=== PATIENT | male | born 1990 | race African-American/Black ===

== ENCOUNTER 2019-02-28 02:34 | Inpatient (IN) | payer OTHER, SELFPAY ==
[2019-02-28] MEDS ORDERED: Adacel (T-DAP) 0.5 ML SYRINGE ONE (02:38)
[2019-02-28] MEDS ORDERED: Fentanyl 100 MCG/2 ML VIAL ONE ×6 (02:41→09:19)
[2019-02-28] MEDS ORDERED: Sodium Chloride 0.9% 0 ML ONE (02:56)
[2019-02-28 03:14] LABS: Hemoglobin 15.2 g/dL (14.0-18.0); Mean Corpuscular HGB CONC 35.1 g/dL (32.0-36.0); Mean Corpuscular Hemoglobin 31.5 pg (27.0-31.0); Mean Corpuscular Volume 89.6 fL (78.0-98.0); Mean Platelet Volume 8.6 fL (7.4-10.4); Platelet Count 223 thou/uL (130-400); RBC Distribution Width 12.2 % (11.5-14.5); Red Blood Cell (RBC) Count 4.81 mill/uL (4.70-6.10); White Blood Cell (WBC) Count 12.6 thou/uL (4.8-10.8)
[2019-02-28] MEDS ORDERED: Ondansetron PF 4 MG/2 ML Vial ONE ×2 (03:16→16:20)
[2019-02-28] MEDS ORDERED: Morphine 4 MG/ML VIAL ONE (03:16)
[2019-02-28 03:18] LABS: INR-International Normal Ratio 1.1
[2019-02-28 03:19] LABS: ALT (SGPT) 32 U/L (8-55); AST (SGOT) 33 U/L (5-34); Albumin 4.9 g/dL (3.5-5.0); Alkaline Phosphatase 84 U/L (40-150); Anion Gap 17 mmol/L (10-20); BUN (Urea Nitrogen) 13 mg/dL (8.9-20.6); Bilirubin, Total 0.9 mg/dL (0.2-1.2); Calc. Creatinine Clearance 0 mL/min (70-130); Calcium 10.2 mg/dL (7.8-10.44); Carbon Dioxide 23 mmol/L (22-29); Chloride 105 mmol/L (98-107); Estimated GFR-MDRD 82; Globulin 3.6 g/dL (2.4-3.5); Glucose 87 mg/dL (70-105); PTT 27.7 SEC (22.9-36.1); Potassium 3.4 mmol/L (3.5-5.1); Protein, Total 8.5 g/dL (6.0-8.3); Sodium 142 mmol/L (136-145)
[2019-02-28 03:32] LABS: #Basophils 0.2 thou/uL (0.0-0.2); #Eosinphils 0.3 thou/uL (0.0-0.7); #Monocytes 0.8 thou/uL (0.11-0.59); #Neutrophils 5.3 thou/uL (1.40-6.50); %Basophils 1.6 % (0.0-1.0); %Eosinophils 2.1 % (0.0-10.0); %Lymphocytes 47.4 % (21.0-51.0); %Monocytes 6.5 % (0.0-10.0); %Neutrophils 42.3 % (42.0-75.0); Platelet Morphology Comment Appears Adequate; RBC Morphology Normal
[2019-02-28] MEDS ORDERED: Sodium Chloride 0.9% 60 ML ONE (06:17)
[2019-02-28] MEDS ORDERED: traMADol HCl 50 MG TAB PO PRN (06:29)
[2019-02-28] MEDS ORDERED: Acetaminophen 325 MG TAB PO PRN (06:29)
[2019-02-28] MEDS ORDERED: Morphine 4 MG/ML VIAL SLOW IVP PRN (06:29)
[2019-02-28] MEDS ORDERED: TETANUS AND DIPHTHERIA TOX/PF 0.5 ML DISP.SYRIN IM SCH (06:30)
[2019-02-28] MEDS ORDERED: Meperidine HCl/PF 25 MG/ML VIAL IM PRN (06:33)
[2019-02-28] MEDS ORDERED: Midazolam HCl 2 mg/2 ml Vial ONE (06:47)
[2019-02-28] MEDS ORDERED: Gentamicin 80 MG/2 ML VIAL ONE (07:09)
[2019-02-28] MEDS ORDERED: Thrombin 5000 UNITS/5 ML VIAL ONE (07:31)
--- NOTE | 2019-02-28 07:34 | RAD ---
EXAM: Single view of the chest HISTORY: Cough COMPARISON: None FINDINGS: Single view of the chest shows a normal sized cardiomediastinal silhouette. There is no diane dence of consolidation, mass, or pleural effusion. The bones are unremarkable. IMPRESSION: No evidence of acute cardiopulmonary disease
[2019-02-28] MEDS ORDERED: Sodium Chloride 0.9% 30 ML ONE (07:39)
--- NOTE | 2019-02-28 07:45 | RAD ---
EXAM: 3 views of the right hand COMPARISON: None HISTORY: Right hand pain after getting hand caught in a newspaper press FINDINGS: 3 views of the right hand shows no evidence of acute fracture or dislocation. No degenerati ve changes are seen. Moderate thumb soft tissue swelling is present. There is a laceration of the thumb without underlying radiopaque foreign body. IMPRESSION: No evidence of acute osseous abnormality.
[2019-02-28] MEDS ORDERED: HYDROmorphone 2 MG/ML VIAL SLOW IVP PRN (08:02)
[2019-02-28] MEDS ORDERED: Ondansetron HCl/PF 4 MG/2 ML Vial IVP PRN (08:02)
[2019-02-28] MEDS ORDERED: Promethazine HCl 25 MG/ML VIAL IM PRN (08:02)
[2019-02-28] MEDS ORDERED: Promethazine HCl 25 MG/ML VIAL SLOW IVP PRN (08:02)
[2019-02-28] MEDS ORDERED: Labetalol HCl 100 MG/20 ML VIAL ONE (08:26)
[2019-02-28] MEDS ORDERED: hydrALAZINE 20 MG/ML VIAL ONE (08:49)
[2019-02-28] MEDS ORDERED: Pen G 2.5 MILL.UNITS/50 ML BAG IVPB SCH (09:00)
[2019-02-28] MEDS: Aspirin 81 mg Enteric Coated Tablet PO SCH ×2 (09:55→21:01)
[2019-02-28 10:50] VITALS: BMI 29.9
[2019-02-28] MEDS: Penicillin G Potassium 2.5 MILL.UNITS in Sodium Chloride 0.9% 50 ML IVPB SCH ×4 (10:59→21:01)
[2019-02-28] MEDS: Sodium Chloride 0.9% 1,000 ML IV SCH ×2 (10:59→15:12)
[2019-02-28] MEDS ORDERED: Vancomycin HCl 1 GM in Premix Bag 1 BAG IVPB SCH (11:30)
[2019-02-28] MEDS ORDERED: ALL ABX IVPB PRN (12:00)
[2019-02-28] MEDS: HYDROcodone/Acetaminophen 5/325 mg Tablet PO PRN (12:10)
[2019-02-28] MEDS: Gentamicin Sulfate 80 MG in Premix Bag 1 BAG IVPB SCH ×2 (14:40→22:47)
[2019-02-28] MEDS ORDERED: Gentamicin 80 MG/100 ML BAG IVPB SCH (15:00)
[2019-02-28] MEDS ORDERED: Glycopyrrolate 0.2 MG/ML 5 ML SYRINGE ONE (16:20)
[2019-02-28] MEDS ORDERED: Rocuronium Bromide 10 MG/ML (10ML VIAL) ONE (16:20)
[2019-02-28] MEDS ORDERED: PROPOFOL 200 MG/20 ML VIAL ONE (16:20)
[2019-02-28] MEDS ORDERED: Succinylcholine Chloride 20 MG/ML 10 ml SYRINGE FS ONE (16:20)
[2019-02-28] MEDS ORDERED: Dexamethasone 20 MG/5 ML VIAL ONE (16:20)
[2019-02-28] MEDS ORDERED: Lidocaine 1% PF 5 ML VIAL ONE (16:20)
[2019-02-28] MEDS: Gabapentin 300 MG CAP PO SCH (21:00)
[2019-02-28] MEDS: Ketorolac Tromethamine 30 MG/ML VIAL IVP PRN (23:53)
[2019-03-01] MEDS: Penicillin G Potassium 2.5 MILL.UNITS in Sodium Chloride 0.9% 50 ML IVPB SCH ×6 (01:32→21:16)
[2019-03-01] MEDS: Sodium Chloride 0.9% 1,000 ML IV SCH ×3 (02:37→21:26)
[2019-03-01] MEDS: Gabapentin 300 MG CAP PO SCH ×3 (05:27→21:16)
[2019-03-01] MEDS: Gentamicin Sulfate 80 MG in Premix Bag 1 BAG IVPB SCH (07:38)
[2019-03-01] MEDS: HYDROcodone/Acetaminophen 5/325 mg Tablet PO PRN (07:43)
[2019-03-01] MEDS: Aspirin 81 mg Enteric Coated Tablet PO SCH ×2 (07:46→21:16)
[2019-03-01 08:16] LABS: #Basophils 0.1 thou/uL (0.0-0.2); #Eosinphils 0.1 thou/uL (0.0-0.7); #Monocytes 0.8 thou/uL (0.11-0.59); #Neutrophils 5.3 thou/uL (1.40-6.50); %Basophils 0.8 % (0.0-1.0); %Eosinophils 1.8 % (0.0-10.0); %Lymphocytes 23.9 % (21.0-51.0); %Monocytes 9.5 % (0.0-10.0); %Neutrophils 64.1 % (42.0-75.0); Hemoglobin 13.3 g/dL (14.0-18.0); Mean Corpuscular HGB CONC 34.8 g/dL (32.0-36.0); Mean Corpuscular Hemoglobin 30.8 pg (27.0-31.0); Mean Corpuscular Volume 88.5 fL (78.0-98.0); Mean Platelet Volume 8.7 fL (7.4-10.4); Platelet Count 180 thou/uL (130-400); Red Blood Cell (RBC) Count 4.33 mill/uL (4.70-6.10); White Blood Cell (WBC) Count 8.3 thou/uL (4.8-10.8)
[2019-03-01 10:28] LABS: Vancomycin, Trough 25.2 ug/mL
[2019-03-01] MEDS ORDERED: PHENYLEPHRINE-NS 100 MCG/ML 10 ML SYRINGE ONE (10:40)
[2019-03-01] MEDS ORDERED: Lidocaine 2% PF 5 ML VIAL ONE (10:40)
[2019-03-01] MEDS ORDERED: Dexamethasone 20 MG/5 ML VIAL ONE (10:40)
[2019-03-01] MEDS ORDERED: Ondansetron PF 4 MG/2 ML Vial ONE (10:40)
[2019-03-01] MEDS ORDERED: PROPOFOL 200 MG/20 ML VIAL ONE (10:40)
[2019-03-01] MEDS: Ketorolac Tromethamine 30 MG/ML VIAL IVP PRN (11:56)
[2019-03-01] MEDS: Ondansetron PF 4 MG/2 ML Vial IVP PRN (11:56)
[2019-03-01] MEDS ORDERED: Bupivacaine PF 0.5% 30 ML VIAL ONE (16:58)
[2019-03-01] MEDS ORDERED: Thrombin 5000 UNITS/5 ML VIAL ONE ×2 (16:58→19:36)
[2019-03-01] MEDS ORDERED: Bacitracin Zinc Ointment 30 gm TUBE ONE (16:58)
[2019-03-01] MEDS ORDERED: Sodium Chloride 0.9% 50 ML ONE (16:59)
[2019-03-01] MEDS ORDERED: Fentanyl 100 MCG/2 ML VIAL ONE (18:24)
[2019-03-01] MEDS: Vancomycin HCl 1.5 GM in Sodium Chloride 0.9% 250 ML 300 ML IVPB SCH (18:25)
[2019-03-01] MEDS ORDERED: Promethazine HCl 25 MG/ML VIAL SLOW IVP PRN (21:02)
[2019-03-01] MEDS ORDERED: Promethazine HCl 25 MG/ML VIAL IM PRN (21:02)
[2019-03-01] MEDS ORDERED: Ondansetron HCl/PF 4 MG/2 ML Vial IVP PRN (21:02)
[2019-03-02] MEDS: Vancomycin HCl 1.5 GM in Sodium Chloride 0.9% 250 ML 300 ML IVPB SCH ×3 (01:01→18:28)
[2019-03-02] MEDS: Penicillin G Potassium 2.5 MILL.UNITS in Sodium Chloride 0.9% 50 ML IVPB SCH ×6 (01:02→21:29)
--- NOTE | 2019-03-02 02:58 | OP ---
DATE OF PROCEDURE: 03/01/2019 PREOPERATIVE DIAGNOSIS: Right hand and wrist and finger open wounds secondary to avulsion of the wrist and skin in a contaminated (printer press with tar ink and dirt) environment. PROCEDURE PERFORMED: 1. Debridement of right thumb. 2. Debridement of right ring finger. 3. Debridement of right small finger. 4. Debridement of right palm and wrist. 5. Application of short-arm splint. DEBRIDEMENT TECHNIQUES: 1. Excision. 2. Use of tenotomy scissors, Austin blade, curette, Adson's and Pulsavac irrigation, 5 L total. 3. The depth was down to and including muscle and fascia, but no violation of bone or joint (intermediate depth, 00025). SPLINT APPLIED: Yes. TOURNIQUET TIME: None. ESTIMATED BLOOD LOSS: 50 mL. INDICATIONS FOR PROCEDURE: The patient returns for staged wound management now approximately 40 hours after his injury and first debridement. He had his wound packed, with the type of avulsion, use of a VAC dressing. He also has a thrombin-soaked Gelfoam placed. DESCRIPTION OF PROCEDURE: After successful general endotracheal anesthesia, the patient's limb was prepped and draped. There was no tourniquet used. We unrolled the avulsed skin, which was the entire palmar skin from 2 cm proximal to the volar wrist flexion crease all the way to the midportion of the proximal phalanx of the index, long, and ring fingers. The thumb also had avulsion on his dorsal and ulnar sides to the level snf through the MP and IP joints. We then inspected all areas, found the small minimal specks x2 or 3 total tar/printing press grease and oil which we removed easily. We debrided a small amount of denuded fat over the ulnar palm, and otherwise we saw a small amount hematoma clot and we used a curette to remove the thrombin-soaked Gelfoam. We now had about 50 mL of blood loss. The only area that did not bleed was a 1 x 2 cm area of skin over the thenar eminence, which was turned somewhat gomez and may need to be debrided at the final closure away. The patient then had a 5 L normal saline used in all interspaces, web spaces, and all wounds. We have done equally. After this, we had more copious bleeding and had to apply moist Raytec as well as thrombin-soaked Gelfoam to control the bleeding from these debrided surfaces. Then, we packed on top of the thrombin-soaked Gelfoam and any area that was still exposed, normal saline soaked gauze x6, 4x4s, dry gauze placed over all this, we used three Kerlix to do a bulky hand dressing between the web spaces, and then we placed an ABD over the 2 bleeding areas, finally Kerlix was applied and we placed the digits in 25 degrees of PIP joint flexion, full extension of the DIP and MP at 60 degrees with a splint dorsal block technique. The patient left the operating room without evidence of anesthetic or operative complication. We encouraged to move his fingers without any thought of problematic findings. Job ID: [id number]
[2019-03-02 05:06] LABS: Anion Gap 12 mmol/L (10-20); BUN (Urea Nitrogen) 21 mg/dL (8.9-20.6); Calc. Creatinine Clearance 54 mL/min (70-130); Calcium 8.9 mg/dL (7.8-10.44); Carbon Dioxide 22 mmol/L (22-29); Chloride 107 mmol/L (98-107); Estimated GFR-MDRD 29; Glucose 153 mg/dL (70-105); Potassium 5.1 mmol/L (3.5-5.1); Sodium 136 mmol/L (136-145)
[2019-03-02 05:14] LABS: Hemoglobin 12.1 g/dL (14.0-18.0); Hypochromia SLIGHT = 6-15 cells (100X) (0-5/hpf); Lymphocytes 5 % (21-51); MDiff Complete? YES; Mean Corpuscular Hemoglobin 31.1 pg (27.0-31.0); Mean Corpuscular Volume 88.9 fL (78.0-98.0); Mean Platelet Volume 8.5 fL (7.4-10.4); Monocytes 6 % (0-10); Neutrophil 89 % (42-75); Platelet Count 183 thou/uL (130-400); Platelet Morphology Comment Appears Adequate; RBC Distribution Width 11.8 % (11.5-14.5); Red Blood Cell (RBC) Count 3.88 mill/uL (4.70-6.10); White Blood Cell (WBC) Count 13.6 thou/uL (4.8-10.8)
[2019-03-02] MEDS: Gabapentin 300 MG CAP PO SCH ×3 (05:58→21:29)
[2019-03-02] MEDS: Ondansetron PF 4 MG/2 ML Vial IVP PRN (07:43)
[2019-03-02] MEDS: Aspirin 81 mg Enteric Coated Tablet PO SCH ×2 (07:56→20:51)
[2019-03-02] MEDS: Sodium Chloride 0.9% 1,000 ML IV SCH ×2 (08:17→17:39)
[2019-03-02] MEDS: Milk Of Magnesia 30 ML UDCUP PO PRN ×2 (09:43→12:57)
[2019-03-02 17:59] LABS: Vancomycin, Trough 55.7 ug/mL
[2019-03-02] MEDS ORDERED: Calcium Carbonate 500 MG ChewTAB PO PRN (20:43)
[2019-03-02] MEDS ORDERED: Famotidine 20 MG TAB PO PRN (20:44)
[2019-03-02 21:33] LABS: Band 4 % (5-11); Hemoglobin 11.4 g/dL (14.0-18.0); Lymphocytes 18 % (21-51); MDiff Complete? YES; Mean Corpuscular HGB CONC 35.3 g/dL (32.0-36.0); Mean Corpuscular Hemoglobin 31.6 pg (27.0-31.0); Mean Corpuscular Volume 89.5 fL (78.0-98.0); Mean Platelet Volume 8.3 fL (7.4-10.4); Monocytes 8 % (0-10); Neutrophil 70 % (42-75); Platelet Count 160 thou/uL (130-400); Platelet Morphology Comment Appears Adequate; RBC Distribution Width 11.9 % (11.5-14.5); Red Blood Cell (RBC) Count 3.61 mill/uL (4.70-6.10); White Blood Cell (WBC) Count 14.9 thou/uL (4.8-10.8)
[2019-03-02] MEDS ORDERED: Promethazine HCl 25 MG/ML VIAL IM PRN (21:59)
[2019-03-02] MEDS ORDERED: hydrOXYzine 25 MG/ML VIAL IM PRN (22:00)
[2019-03-02] MEDS ORDERED: Morphine 4 MG/ML VIAL SLOW IVP PRN (22:01)
[2019-03-02 22:45] LABS: ALT (SGPT) 35 U/L (8-55); AST (SGOT) 49 U/L (5-34); Albumin 3.6 g/dL (3.5-5.0); Alkaline Phosphatase 64 U/L (40-150); Bilirubin, Direct 0.2 mg/dL (0.1-0.3); Bilirubin, Total 0.6 mg/dL (0.2-1.2); Protein, Total 6.3 g/dL (6.0-8.3)
[2019-03-03] MEDS: Penicillin G Potassium 2.5 MILL.UNITS in Sodium Chloride 0.9% 50 ML IVPB SCH ×6 (02:04→21:18)
[2019-03-03 05:15] LABS: #Eosinphils 0.1 thou/uL (0.0-0.7); #Lymphocytes 2.1 thou/uL (1.20-3.40); #Monocytes 1.1 thou/uL (0.11-0.59); #Neutrophils 7.1 thou/uL (1.40-6.50); %Basophils 0.3 % (0.0-1.0); %Eosinophils 0.9 % (0.0-10.0); %Lymphocytes 19.9 % (21.0-51.0); %Monocytes 10.4 % (0.0-10.0); %Neutrophils 68.5 % (42.0-75.0); Hemoglobin 10.3 g/dL (14.0-18.0); Mean Corpuscular HGB CONC 34.6 g/dL (32.0-36.0); Mean Corpuscular Hemoglobin 30.8 pg (27.0-31.0); Mean Corpuscular Volume 88.9 fL (78.0-98.0); Mean Platelet Volume 8.5 fL (7.4-10.4); Platelet Count 161 thou/uL (130-400); RBC Distribution Width 11.9 % (11.5-14.5); Red Blood Cell (RBC) Count 3.34 mill/uL (4.70-6.10); White Blood Cell (WBC) Count 10.4 thou/uL (4.8-10.8)
[2019-03-03] MEDS: Gabapentin 300 MG CAP PO SCH ×3 (06:22→21:18)
[2019-03-03] MEDS: Sodium Chloride 0.9% 1,000 ML IV SCH ×2 (06:36→14:52)
[2019-03-03] MEDS: Aspirin 81 mg Enteric Coated Tablet PO SCH ×2 (08:43→21:19)
[2019-03-03] MEDS: HYDROcodone/Acetaminophen 5/325 mg Tablet PO PRN (12:20)
[2019-03-03 17:32] LABS: Vancomycin, Random 29.7 ug/mL (See Comment)
[2019-03-03] MEDS ORDERED: Vancomycin HCl 1.5 GM in Sodium Chloride 0.9% 250 ML 300 ML IVPB SCH (18:00)
[2019-03-04] MEDS: Ketorolac Tromethamine 30 MG/ML VIAL IVP PRN ×2 (00:15→14:30)
[2019-03-04] MEDS: Penicillin G Potassium 2.5 MILL.UNITS in Sodium Chloride 0.9% 50 ML IVPB SCH ×3 (01:56→11:36)
[2019-03-04] MEDS: Sodium Chloride 0.9% 1,000 ML IV SCH ×3 (02:41→21:02)
[2019-03-04] MEDS ORDERED: Gentamicin Sulfate 100 MG in Premix Bag 1 BAG IVPB SCH (03:00)
[2019-03-04] MEDS: Gabapentin 300 MG CAP PO SCH ×3 (06:21→21:03)
[2019-03-04] MEDS ORDERED: Bacitracin Zinc Ointment 30 gm TUBE ONE (07:57)
[2019-03-04] MEDS ORDERED: Bupivacaine PF 0.5% 30 ML VIAL ONE (07:57)
[2019-03-04] MEDS ORDERED: Thrombin 5000 UNITS/5 ML VIAL ONE (07:57)
[2019-03-04] MEDS ORDERED: Sodium Chloride 0.9% 10 ML ONE (07:58)
[2019-03-04] MEDS: Aspirin 81 mg Enteric Coated Tablet PO SCH ×2 (08:55→21:02)
[2019-03-04] MEDS ORDERED: Midazolam HCl 2 mg/2 ml Vial ONE (10:06)
[2019-03-04] MEDS ORDERED: Fentanyl 100 MCG/2 ML VIAL ONE ×2 (10:07→10:29)
[2019-03-04] MEDS ORDERED: Bupivacaine 0.25% HCL 30 ML VIAL ONE (12:33)
[2019-03-04] MEDS ORDERED: PROPOFOL 200 MG/20 ML VIAL ONE (12:58)
[2019-03-04] MEDS ORDERED: Lidocaine 1% PF 5 ML VIAL ONE (12:58)
[2019-03-04] MEDS ORDERED: Meperidine HCl/PF 25 MG/ML VIAL ONE (13:10)
[2019-03-04] MEDS ORDERED: Morphine 4 MG/ML VIAL SLOW IVP PRN (14:09)
[2019-03-04] MEDS ORDERED: Meperidine HCl/PF 25 MG/ML VIAL IM PRN (14:09)
[2019-03-04] MEDS ORDERED: traMADol HCl 50 MG TAB PO PRN (14:09)
[2019-03-04] MEDS: Clindamycin/D5W 600 MG in Premix Bag 1 BAG IVPB SCH ×2 (14:30→21:09)
[2019-03-04] MEDS: HYDROcodone/Acetaminophen 5/325 mg Tablet PO PRN (18:23)
[2019-03-05] MEDS: Ketorolac Tromethamine 30 MG/ML VIAL IVP PRN (04:45)
[2019-03-05] MEDS: HYDROcodone/Acetaminophen 5/325 mg Tablet PO PRN (04:46)
[2019-03-05] MEDS: Gabapentin 300 MG CAP PO SCH ×2 (05:03→14:42)
[2019-03-05] MEDS: Clindamycin/D5W 600 MG in Premix Bag 1 BAG IVPB SCH (05:03)
[2019-03-05] MEDS: Sodium Chloride 0.9% 1,000 ML IV SCH ×2 (05:53→14:44)
[2019-03-05] MEDS: Aspirin 81 mg Enteric Coated Tablet PO SCH (09:16)
--- NOTE | 2019-03-05 15:02 | OP ---
DATE OF PROCEDURE: 03/04/2019 PREOPERATIVE DIAGNOSES: 1. Right ring finger 6-cm open wound. 2. Right middle finger 5-cm open wound. 3. Right thumb 10-cm open wound. 4. Right small finger 5-cm open wound. 5. Right palmar hand to wrist 22-cm open wound. PROCEDURES PERFORMED: 1. Right ring finger;. a. Wound debridement. b. A 2-cm wound closure. c. A 4-cm partial-thickness skin graft from the ipsilateral right thigh. 2. Right middle finger;. a. Wound debridement. b. A 5-cm wound closure. 3. Right thumb;. a. Wound closure, 10 cm. b. Wound debridement. All these were separate incisions. 4. Right palmar hand wound;. a. Debridement. b. An 8-cm wound closure. c. A 12 x 2 cm partial-thickness skin graft harvest from ipsilateral right thigh. 5. Right small finger wound;. a. Debridement. b. A 5-cm wound closure. ESTIMATED BLOOD LOSS: 25 mL. TOURNIQUET TIME: None. FINDINGS: No gross infection part or contamination or necrosis. DESCRIPTION OF PROCEDURE: After successful general LMA technique, the limb was prepped and draped. We immediately gave the patient a block of approximately 30 mL of 0.5% Marcaine around the incisions and in finger wounds described above and 20 at his outlined donor site of the right anterolateral thigh. We then lifted up the flap and inspected, there was small amount of bleeding. We debrided the flap to include curettage of some area of the muscle covered with mild amount of darkened muscle with clot over as well as the wound edges circumferentially about 1 to 2 mm until we saw bleeding tissue in all remaining edges. This also included inspection of lifting up the wound edges for possible hematoma, which are not seen. We then finished debridement of all wounds in all the fingers using the following techniques; 1. Excision technique. 2. Use of tenotomy scissors, Adson pickups, 2 times curettes and a total of 750 mL normal saline with bacitracin inside, bulb syringe. Once this was done, we saw the edges bleeding around all the incisions. We removed the thrombus soaked gelfoam from previous case. We then began by closing at first the primary ulna hand, wrist wound with interrupted 3-0 nylon in simple pattern, closed the ulnar finger wound after removing all of the previous macerated skin. This was done with 3-0 nylon down to the base of the small finger. We had individually debrided the wound of small, ring, middle and thumb at this time. At the small finger, we closed 5-cm open wound. At the ring finger, we closed approximately 2-cm of the post-debrided wound edge, but once this was done, we noticed we had an area of approximately 4-cm long where we could not get the gap to come down, so skin graft will be needed here. At the right middle finger, we were able to debride the wound using the techniques listed above and closed the 5-cm wound without any abnormality or transgressions. Finally, at the right thumb, we elevated and inspected all wound edges, finished debridement using techniques listed above and closed the 10-cm wound with simple pattern of 3-0 nylon. No complications. The patient's small finger complete wound could not be closed. Thus when it was closed distally, left a defect over the proximal wound, which was almost T-shaped, that was approximately 12.5-cm long x 3-cm wide, so we took a 4-cm wide blade and harvested this in an usual fashion down to and including the dermis and epidermis. Then, we placed all the grafts we harvested from the ipsilateral thigh in a mesh, once the leg had been completely covered successfully and held down with bolster to include using patricia to hold them, we turned our attention and took some of the graft and placed it in the ring finger. This was tolerated well with staple gun and we plan to check the patient's dressing in one day and then consider the 5-7 day complete cover. Job ID: [id number]
--- NOTE | 2019-03-05 15:17 | OP ---
DATE OF PROCEDURE: 02/28/2019 CHIEF COMPLAINT: 1. Hand caught in a press with degloving of the skin and lacerations along the thumb, middle finger, long finger, and small finger, especially web spaces secondary to the same injury without fracture. 2. Neurapraxia. Median nerve had the sharp objects fly near it causing irritation, which will affect him long after the initial postop interval. . PREOPERATIVE DIAGNOSES: 1. Right small finger 6 cm wound. 2. Right thumb 2 cm open wound. 3. Right middle finger 5 cm open wound. 4. Right ring finger 6 cm open wound. PROCEDURES PERFORMED: 1. Debridement of right ring finger wound. 2. Debridement of right middle finger wound. 3. Right thumb 10 cm wound debridement. 4. Right palmar hand wound, approximately 9 cm wound. 5. Digital nerve neuroplasty to: a. Right ring finger. b. Right middle finger. c. Right thumb. d. Right small finger, both digital nerves. HOSPITAL COURSE: The patient had anesthesia by [facility] which was general LMA technique. It was perfect. Before we actually did the procedure, we scrubbed his hand to remove the very thick dark ink along with particle matter we found inside this wound. We began at the level of the scaphoid and the skin was avulsed like a ring avulsion type injury over the palmar aspect and then up to the thumb, middle proximal phalanx and out to the PIP joint of the long ring and small finger with separate laceration longitudinally down all the fingers except the index. Once we lifted this up, after precleaning without a sterile cleaning, the first thing we did was trim the wound edges where maceration was seen almost 1 mm circumferentially on both sides, degloving the laceration. We then performed a neuroplasty of the small finger, ring finger, long finger, and the thumb digital artery. On digital nerve neuroplasty to: a. Right ring finger. b. Right middle finger. c. Right thumb. d. Right small finger, both digital nerves. These were found to be intact. Inspection of the median nerve at the wrist showed it could be visible, just proximal to the carpal tunnel, but the carpal tunnel was still intact and could be seen again distally without any abnormality, so since he had normal two-point discrimination preop, we did not do formal median nerve neuroplasty. It took us nearly 40 minutes to remove the debris, debride the skin edges, make sure we had left only viable skin and muscle and irrigated with 5 L normal saline. This was Pulsavac pressure. The patient also had the debridement accomplished on this date of injury using the following techniques, 1. Excisional technique. 2. Use of tenotomy scissors, Freed scissors, 11 blade knife, 15 blade knife, Houston blade, Adson's, Crile, and hemostats along with irrigation described above. The patient's debridement went down to the fascia sheath, but did not have to involve bone and joint, and there was no x-ray fracture seen. Once we finished debridement and removed as much debris as humanly possible, we then finished irrigation with 5 L normal saline and Pulsavac pressure, but there were too much gross contaminations to close the wound. Therefore, we finished the debridement, placed because of bleeding proximally in the wound, and because of the fact that we removed almost 2 cm gap between the skin edge proximally and thus it could not be closed, so we placed this patient in wound care protocol after the surgery, covered it with normal saline soaked gauze packed inside the wound opening of the ulna, dorsal radial side of the thumb and then dry 4x4s, bulky hand dressing and a dorsal block splint. The patient left the operating room without evidence that day, the , of anesthetic operative complication. Job ID: [id number]
[2019-03-05 16:08] VITALS: BP 146/83; TEMP 98.9
--- NOTE | 2019-03-08 15:25 | EKG ---
Test Reason : TRAUMA Blood Pressure : / mmHG Vent. Rate : 071 BPM Atrial Rate : 071 BPM P-R Int : 172 ms QRS Dur : 098 ms QT Int : 362 ms P-R-T Axes : 060 033 019 degrees QTc Int : 393 ms Normal sinus rhythm Normal ECG Confirmed by TREY COTE D.O. ([id number]), content editor MATT KAMARA ([id number]) on 03/08/2019 3:24:43 PM Referred By: MIKIE COTE Confirmed By:TREY COTE D.O.
== END 2019-03-05 16:15 | disposition home or self-care (01) | DRG 42 ==
LOC: ERS 02:34 → SURG B 05:56 → SDC/OP 06:00 → SURG B 06:29
PROVIDERS: ADMIT Orthopaedic Surgery Hand Surgery; ATTEND Emergency Medicine
PROC: 01Q50ZZ Repair Median Nerve, Open Approach (ICD-10-PCS; principal; 2019-02-28)
PROC: 01Q50ZZ Repair Median Nerve, Open Approach (ICD-10-PCS; 2019-02-28)
PROC: 01Q50ZZ Repair Median Nerve, Open Approach (ICD-10-PCS; 2019-02-28)
PROC: 01Q50ZZ Repair Median Nerve, Open Approach (ICD-10-PCS; 2019-02-28)
PROC: 0HRFX74 Replacement of Right Hand Skin with Autologous Tissue Substitute, Partial Thickness, External Approach (ICD-10-PCS; 2019-02-28)
PROC: 0KBC0ZZ Excision of Right Hand Muscle, Open Approach (ICD-10-PCS; 2019-02-28)
PROC: 0HBHXZZ Excision of Right Upper Leg Skin, External Approach (ICD-10-PCS; 2019-02-28)
PROC: 0KBC0ZZ Excision of Right Hand Muscle, Open Approach (ICD-10-PCS; 2019-03-01)
DX: S64.11XA Injury of median nerve at wrist and hand level of right arm, initial encounter (principal); S64.496A Injury of digital nerve of right little finger, initial encounter; S64.31XA Injury of digital nerve of right thumb, initial encounter; S64.492A Injury of digital nerve of right middle finger, initial encounter; S64.494A Injury of digital nerve of right ring finger, initial encounter; W31.89XA Contact with other specified machinery, initial encounter; Y93.9 Activity, unspecified; Y92.9 Unspecified place or not applicable; Y99.9 Unspecified external cause status
CPT/HCPCS: 36415; 71045; 80048; 80053; 80076; 80170; 80202; 82150; 83690; 85025; 85610; 85730; 90471; 90715; 93005; 96365; 96375; J0360; J0690; J1100; J1580; J1885; J2001; J2175; J2250; J2270; J2405; J2540; J2550; J2704; J3010; J3370; J3490; J7050; S0020

== ENCOUNTER 2019-03-09 18:25 | Inpatient (IN) | payer OTHER, SELFPAY ==
[2019-03-09] MEDS ORDERED: Ondansetron PF 4 MG/2 ML Vial ONE ×4 (19:05→21:23)
[2019-03-09 19:50] LABS: #Basophils 0.1 thou/uL (0.0-0.2); #Eosinphils 0.2 thou/uL (0.0-0.7); #Lymphocytes 2.5 thou/uL (1.20-3.40); #Neutrophils 9.9 thou/uL (1.40-6.50); %Basophils 0.7 % (0.0-1.0); %Eosinophils 1.4 % (0.0-10.0); %Monocytes 7.4 % (0.0-10.0); %Neutrophils 72.5 % (42.0-75.0); Hemoglobin 13.6 g/dL (14.0-18.0); Mean Corpuscular HGB CONC 34.1 g/dL (32.0-36.0); Mean Corpuscular Hemoglobin 30.6 pg (27.0-31.0); Mean Corpuscular Volume 89.8 fL (78.0-98.0); Mean Platelet Volume 7.7 fL (7.4-10.4); Platelet Count 439 thou/uL (130-400); RBC Distribution Width 11.5 % (11.5-14.5); Red Blood Cell (RBC) Count 4.42 mill/uL (4.70-6.10); White Blood Cell (WBC) Count 13.6 thou/uL (4.8-10.8)
[2019-03-09 20:02] LABS: Bilirubin Negative (Negative); Blood, Urine Trace (Negative); Clarity CLEAR (Clear); Glucose, Urine (Dipstick) Negative (Negative); Leukocyte Negative (Negative); Nitrite Negative (Negative); Protein, Urine (Dipstick) 100 mg/dL (Neg-Trace); Specific Gravity, Urine 1.014 (1.002-1.036); Urobilinogen 0.2 mg/dL (0.2-1.0)
[2019-03-09 20:04] LABS: Bacteria/HPF None Seen HPF (None Seen); Hyaline Casts/LPF 7-10 HYALINE CAST LPF (0-3 Hyaline); Pathc Cast-AUWi Flag 1.49 (0-2.49)
[2019-03-09 20:05] LABS: Renal Epithelial None Seen HPF (0-3); Transitional Epithelial NONE SEEN HPF (0-3)
[2019-03-09 20:10] LABS: ALT (SGPT) 25 U/L (8-55); AST (SGOT) 27 U/L (5-34); Albumin 4.9 g/dL (3.5-5.0); Alkaline Phosphatase 98 U/L (40-150); Anion Gap 22 mmol/L (10-20); BUN (Urea Nitrogen) 26 mg/dL (8.9-20.6); Bilirubin, Total 0.6 mg/dL (0.2-1.2); CK (CPK) 123 U/L (30-200); Calc. Creatinine Clearance 0 mL/min (70-130); Calcium 11.4 mg/dL (7.8-10.44); Carbon Dioxide 14 mmol/L (22-29); Chloride 102 mmol/L (98-107); Estimated GFR-MDRD 25; Globulin 5.2 g/dL (2.4-3.5); Glucose 103 mg/dL (70-105); Protein, Total 10.1 g/dL (6.0-8.3); Sodium 130 mmol/L (136-145)
[2019-03-09 20:13] LABS: Potassium 7.8 mmol/L (3.5-5.1)
--- NOTE | 2019-03-09 21:13 | RAD ---
PORTABLE CHEST ONE VIEW: 03/09/19 at 7:37 p.m. HISTORY: Weakness, recent hand reconstruction. FINDINGS: Comparison made with exam of 02/28/19. The heart size is normal. The lungs are fairly expanded without focal areas of consolidation, pneumot horaces or pleural effusions. IMPRESSION: No radiographic evidence of acute cardiopulmonary process. POS: [facility]
[2019-03-09] MEDS ORDERED: Promethazine HCl 25 MG/ML VIAL ONE (22:07)
[2019-03-10 00:34] LABS: Anion Gap 21 mmol/L (10-20); BUN (Urea Nitrogen) 27 mg/dL (8.9-20.6); Calc. Creatinine Clearance 0 mL/min (70-130); Calcium 10.5 mg/dL (7.8-10.44); Carbon Dioxide 17 mmol/L (22-29); Chloride 102 mmol/L (98-107); Estimated GFR-MDRD 26; Glucose 76 mg/dL (70-105); Sodium 132 mmol/L (136-145)
[2019-03-10 00:36] LABS: Potassium 7.9 mmol/L (3.5-5.1)
[2019-03-10] MEDS ORDERED: Ondansetron ODT 4 MG TAB PO PRN (00:53)
[2019-03-10] MEDS ORDERED: Ondansetron PF 4 MG/2 ML Vial IVP PRN (00:53)
[2019-03-10] MEDS ORDERED: Dextrose 50% Abboject 50 ML SYRINGE SLOW IVP PRN (00:56)
[2019-03-10] MEDS ORDERED: Dextrose 50% Abboject 50 ML SYRINGE ONE (00:56)
[2019-03-10] MEDS ORDERED: Sodium Bicarb 50 MEQ/50 ML VIAL ONE (00:56)
[2019-03-10] MEDS ORDERED: Insulin Regular 300 UNITS/3 ML VIAL ONE (00:56)
[2019-03-10] MEDS ORDERED: Fentanyl 100 MCG/2 ML VIAL ONE (01:01)
[2019-03-10] MEDS ORDERED: Calcium Gluconate 4.6 MEQ in Sodium Chloride 0.9% 100 ML IVPB SCH (01:15)
[2019-03-10] MEDS ORDERED: Albuterol Sulfate 2.5 mg/3 ml Neb ONE (01:53)
[2019-03-10] MEDS: Albuterol Sulfate 2.5 mg/3 ml Neb NEB SCH ×2 (02:00→04:40)
--- NOTE | 2019-03-10 02:52 | HP ---
PRIMARY CARE PHYSICIAN: The patient has no PCP. CODE STATUS: Full code. TIME OF EVALUATION: 1230 hours. CHIEF COMPLAINT: Generalized weakness. HISTORY OF PRESENT ILLNESS: This is a 28-year-old male patient with past medical history of no major medical problems except for asthma, came to the hospital after having generalized weakness, with no clear triggers, no alleviating factors. The patient had been discharged from the hospital on Tuesday and has been vomiting since then. The patient was found to have a very high potassium, presented with acute kidney injury, we have to repeat the potassium level to rule out any lab error. We are treating hyperkalemia, I have consulted Dr. Kirkpatrick. We have discussed the case. He believes the patient will need hemodialysis. Also, case discussed with Dr. Huerta for coordination of the patient's care. Symptoms were severe. The patient seems to be very dehydrated. No alleviating factors. REVIEW OF SYSTEMS: CONSTITUTIONAL: No fever, no chills. The patient has generalized weakness. RESPIRATORY: No cough, sputum production, or shortness of breath. CARDIOVASCULAR: No chest pain or palpitation. GASTROINTESTINAL: The patient had nausea and vomiting. No diarrhea. The patient has abdominal cramps. FLASH RANGING CREWMEMBER: No dizziness, headache, or feeling lightheaded. GENITOURINARY: No burning on urination. EXTREMITIES: No leg swelling. The patient seems to be dehydrated. All other systems were reviewed and negative except for the findings mentioned above. PAST MEDICAL HISTORY: Positive for pulmonary disease and asthma. FAMILY HISTORY: Reviewed, noncontributory to this case. PAST SURGICAL HISTORY: Left arm surgery and right hand surgery on the . PSYCHIATRIC HISTORY: No previous psych history. SOCIAL HISTORY: No alcohol. The patient abuses marijuana. No smoking history. KNOWN ALLERGIES: No known drug allergies. REPORTED MEDICATIONS: Clindamycin. PHYSICAL EXAMINATION: VITAL SIGNS: Blood pressure 125/87 with heart rate 84, respiratory rate was 16, temperature 98.8, pain 5/10, and oxygen saturation 100% on room air. GENERAL APPEARANCE: The patient is alert, oriented, lying comfortably in bed, the patient seems to be dehydrated. HEENT: Eyes, normal conjunctivae. Dry oral mucosa. Anicteric. No JVD. RESPIRATORY: Bilateral air entry. No rales. No wheezes. Symmetric expansion. CARDIOVASCULAR: Normal rate. Regular rhythm. No murmurs. No gallop. No edema. ABDOMEN: Soft. Normal bowel sounds. MUSCULOSKELETAL: Baseline range of motion. The patient does report having some generalized tenderness of the muscles. SKIN: Warm, intact. No pallor. No rash. No redness. Seems to be dry. Peripheral pulses are present. Capillary refill seems to be intact. NEURO: No evidence of any new focal weakness. Baseline speech. Cranial nerves seem to be intact. PSYCH: The patient is in good mood. No anxiety. Optimal judgment. DIAGNOSTIC DATA: EKG was reviewed. The patient has normal sinus rhythm at the rate of 74, PA 148, QRS 86, QT corrected 375. Chest x-ray was reviewed. The patient has no radiographic evidence of acute cardiopulmonary process. LABORATORY DATA: Reviewed. The patient has white count 13.6, hemoglobin 13.6, MCV 89.8, and platelet count 139. Coagulation; D-dimer 267. Chemistry; sodium 130 and repeat one 132, potassium 7.8 and repeat one 7.9, chloride 102, carbon dioxide 14 and repeat one 17 with anion gap 22, BUN 26, creatinine 3.54, GFR 25, glucose 103, lactic acid 3.5, calcium 11.4 and repeat one 10.5. The repeat labs were after 2 L of NS. UA; white count 11 to 20, hyaline casts 7 to 10, squamous cells 4 to 6, and urine protein 100. ASSESSMENT AND PLAN: The patient will be placed in the hospital with following medical problems: 1. Acute kidney injury, unclear etiology, could be secondary to severe dehydration. Also was noted that the patient also has some kidney injury prior to discharge. It could be secondary to treatment with antibiotics. We have consulted Nephrology , we will follow recommendations. After discussed with Dr. Kirkpatrick, he believes the patient will need hemodialysis. We have arranged with Dr. Huerta to get the patient ready for procedure. 2. Hyponatremia, sodium 132, this could be secondary to continuous nausea and vomiting and poor oral intake. The patient has received 2 L of NS, he is going to receive dialysis, further fluid resuscitation and volume balance as per Nephrology. 3. High anion gap metabolic acidosis, this is likely secondary to acute kidney injury, we will treat underlying condition as mentioned above. 4. Hypercalcemia likely secondary to dehydration. Initial calcium was 11.4 and after hydration, it was 10.5. We have ordered a gram of calcium to prevent arrhythmia and hyperkalemia. Discussed with Nephrology. 5. Pyuria in urine. This could be secondary to acute kidney injury. We will follow Nephrology recommendations. 6. Recent hand skin graft, this problem can be monitored by Surgery, that could be called for assistance. Dr. Shin was in charge of the procedure of this patient. 7. Severe dehydration, likely secondary to nausea and vomiting, we will hydrate. TIME SPENT: Critical care time spent, more than 35 minutes in evaluation, discussion with ER physician, medication reconciliation, discussion with consultants, Dr. Kirkpatrick, and stabilization of the patient. Job ID: [id number] MTDD
[2019-03-10 02:56] LABS: HBSAg Index 0.23 S/CO (0-0.99); Hep B Surf Ag Non-Reactive S/CO (NonReactive)
[2019-03-10] MEDS ORDERED: Sodium Chloride 0.9% 1,000 ML IV SCH (04:00)
[2019-03-10 04:41] LABS: #Basophils 0.1 thou/uL (0.0-0.2); #Eosinphils 0.1 thou/uL (0.0-0.7); #Lymphocytes 1.9 thou/uL (1.20-3.40); %Basophils 0.8 % (0.0-1.0); %Eosinophils 0.5 % (0.0-10.0); %Lymphocytes 15.7 % (21.0-51.0); %Monocytes 8.6 % (0.0-10.0); %Neutrophils 74.4 % (42.0-75.0); Hemoglobin 10.9 g/dL (14.0-18.0); Mean Corpuscular HGB CONC 34.6 g/dL (32.0-36.0); Mean Corpuscular Hemoglobin 30.4 pg (27.0-31.0); Mean Platelet Volume 7.2 fL (7.4-10.4); Platelet Count 442 thou/uL (130-400); RBC Distribution Width 11.2 % (11.5-14.5); Red Blood Cell (RBC) Count 3.57 mill/uL (4.70-6.10); White Blood Cell (WBC) Count 12.1 thou/uL (4.8-10.8)
[2019-03-10 04:59] LABS: Anion Gap 18 mmol/L (10-20); BUN (Urea Nitrogen) 26 mg/dL (8.9-20.6); Calc. Creatinine Clearance 0 mL/min (70-130); Calcium 10.1 mg/dL (7.8-10.44); Carbon Dioxide 19 mmol/L (22-29); Chloride 104 mmol/L (98-107); Estimated GFR-MDRD 25; Glucose 104 mg/dL (70-105); Sodium 136 mmol/L (136-145)
[2019-03-10 05:02] LABS: Lactic Acid 0.8 mmol/L (0.5-2.2)
[2019-03-10 05:36] VITALS: BMI 29.9
[2019-03-10] MEDS ORDERED: Heparin 5,000 UNITS/ML VIAL SC SCH (09:00)
[2019-03-10] MEDS ORDERED: Lidocaine 1% w/Epinephrine 1:100K 20 ML VIAL ONE (09:00)
[2019-03-10] MEDS ORDERED: HYDROmorphone 0.5 MG/0.5 ML SYRINGE SLOW IVP PRN (09:30)
[2019-03-10] MEDS: Sodium Chloride 0.45% 1,000 ML IV SCH ×2 (09:52→18:29)
--- NOTE | 2019-03-10 10:47 | ULT ---
BILATERAL RENAL ULTRASOUND: Date: 03/10/19 HISTORY: Acute kidney insufficiency. FINDINGS: Both kidneys measure approximately 12.5 cm length. No hydronephrosis. Cortical echogenicity is within normal range. Urinary bladder is mildly distended and unremarkable. IMPRESSION: Unremarkable renal ultrasound. POS: OFF
--- NOTE | 2019-03-10 10:49 | ULT ---
ULTRASOUND LEFT GROIN WITH DOPPLER: Date: 03/10/19 INDICATION: Ultrasound and Doppler of left groin requested due to pain. Recent dialysis access placement at this site. FINDINGS: No evidence of pseudoaneurysm. No evidence of hematoma. Doppler shows normal blood flow within the le ft femoral artery and vein. No sonographic abnormality identified. IMPRESSION: No acute findings. POS: OFF
--- NOTE | 2019-03-10 11:17 | CON ---
DATE OF CONSULTATION: 03/10/2019 SERVICE: Pulmonary Medicine. REASON FOR CONSULT: ICU patient. HISTORY OF PRESENT ILLNESS: The patient is a 28-year-old male with past medical history significant for recent crush injury to the hand. He had a surgery done. Ultimately, he was discharged on antibiotics. He developed increasing generalized weakness associated with nausea and vomiting. He was unable to keep any p.o. down. Ultimately, he returned to the hospital with an acute kidney injury. Potassium was elevated, and he underwent emergent dialysis last night. His potassium has improved dramatically. The patient has significant discomfort at the site of the insertion of the Vas Cath. He denies any current fevers, chills, shortness of breath, nausea, or vomiting currently. His appetite is not good yet. PAST MEDICAL HISTORY: Asthma. FAMILY HISTORY: Noncontributory. PAST SURGICAL HISTORY: 1. Left arm surgery. 2. Right hand surgery. SOCIAL HISTORY: Negative for alcohol or tobacco. He occasionally uses some marijuana. He has no exposure to chemicals, dust, asbestos, or tuberculosis. ALLERGIES: NO KNOWN DRUG ALLERGIES. MEDICATIONS: List of the patient's medications were reviewed. No specific updates were made at this time. REVIEW OF SYSTEMS: General; head, ears, eyes, nose, and throat; cardiovascular; respiratory; GI; ; musculoskeletal; neurologic; and skin are negative except as mentioned in the HPI. PHYSICAL EXAMINATION: VITAL SIGNS: Afebrile, pulse 97, blood pressure 144/89, respirations 17, and saturation 98% on room air. GENERAL: The patient is awake and alert, in no apparent distress. LUNGS: Excellent air entry. No prolonged expiratory phase or wheezing is appreciated. HEART: Normal rate, regular. ABDOMEN: Soft, nontender, and nondistended. Bowel sounds are positive. MUSCULOSKELETAL: No cyanosis or clubbing. There is no pitting in bilateral lower extremities. He has good pulses in bilateral lower extremities. He has continuous oozing of bright red blood from the site of the vascular catheter. LABORATORY DATA: WBC 12.1, eosinophil count is low, hemoglobin 10.9, and platelets 442,000. D-dimer 2.67. Potassium 7.9, now down to 5.0. Creatinine was 3.4 and is gently up-trending to 3.6. Bicarb improved to 19, calcium 10.1. Lactate 0.8, downtrending from 3.5. Urinalysis is unremarkable. Hepatitis B surface antigen is negative. Blood cultures x1 is negative. IMAGING DATA: Chest x-ray demonstrates no acute cardiopulmonary abnormality. ASSESSMENT: 1. Severe dehydration. 2. Acute kidney injury. 3. Hyperkalemia, resolved. 4. Recent crush injury to hand with surgery requiring some antibiotics. DISCUSSION AND PLAN: I will hold the heparin since the patient is oozing bright red blood from his cath site. This can be restarted once the bleeding is done. I agree with gentle IV hydration. I will do an ultrasound of the left groin to make certain that the patient did not have any significant aneurysm/pseudoaneurysm formation. Pulmonary/Critical Care will continue to follow along in this location, but from my perspective, he is stable for transition to the telemetry unit. 70 minutes have been devoted to this patient in various activities. I personally reviewed all imaging studies and laboratory data noted within this document. For fifty percent of this time, I was interacting with the patient at the bedside or coordinating care with the care team. For the remainder of the time I was immediately available to the patient in the hospital unit. Job ID: [id number] [facility]
[2019-03-10 15:01] LABS: Hemoglobin 10.2 g/dL (14.0-18.0); Platelet Count 368 thou/uL (130-400)
[2019-03-10 15:18] LABS: Potassium 4.4 mmol/L (3.5-5.1)
[2019-03-10] MEDS: Acetaminophen 325 MG TAB PO PRN (20:47)
--- NOTE | 2019-03-10 21:12 | CON ---
DATE OF CONSULTATION: REASON FOR CONSULTATION: Hyperkalemia. HISTORY OF PRESENT ILLNESS: This is a 28-year-old gentleman who presented to the ER for uncontrolled nausea and vomiting, as well as hyperkalemia. I was consulted at 2:00 a.m. this morning. The patient had a potassium of 7. The patient developed weakness as well. PAST MEDICAL HISTORY: Significant for asthma CKD, acute kidney injury, left arm surgery, right hand surgery. SOCIAL HISTORY: No alcohol or drug use. FAMILY HISTORY: Negative for ESRD. ALLERGIES: REVIEWED. REVIEW OF SYSTEMS: A 15-point review of systems was performed and was negative except for positives noted above. NECK: No swelling or lumps. NOSE: No epistaxis or discharge. EYES: No diplopia or pain. MUSCULOSKELETAL: No joint pain. NEUROPSYCHIATRIC SYSTEMS: No suicidal ideation. No ideation. SKIN: Denies any rash or ulcer. CONSTITUTIONAL: No fever or chills. PHYSICAL EXAMINATION: See above. GENERAL: The patient is awake and alert. VITAL SIGNS: Pulse 97, breathing 16, blood pressure 144/89. GENERAL APPEARANCE AND MENTAL STATUS: Fair. HEAD/NECK: Normocephalic. Atraumatic. EYES: EOMI. No deformity. EARS: Clear. No ulcers. NOSE: Intact. No lesions. MOUTH: Clear. No discharge. THROAT: Clear. No exudate. LUNGS: Clear. No crackles. CARDIAC: S1, S2. No rub. ABDOMEN: Benign. Bowel sounds positive. GENITALIA/RECTUM: Lanier absent. BACK/EXTREMITIES: Edema 0+. NEUROLOGICAL: Alert and motor intact. LABORATORY DATA: Reviewed. ASSESSMENT AND PLAN: 1. Acute kidney injury with hyperkalemia due to acute tubular necrosis. Plan, urgent dialysis. 2. Hyperkalemia. Plan, dialysis. 3. Metabolic acidosis. Plan, dialysis. 4. Risks versus benefits were discussed and the patient was initiated on dialysis . 5. Hypercalcemia. Continue hydration. Job ID: [id number]
[2019-03-11] MEDS: Sodium Chloride 0.45% 1,000 ML IV SCH ×2 (04:36→21:19)
[2019-03-11 10:15] LABS: #Basophils 0.1 thou/uL (0.0-0.2); #Eosinphils 0.4 thou/uL (0.0-0.7); #Monocytes 1.2 thou/uL (0.11-0.59); #Neutrophils 8.5 thou/uL (1.40-6.50); %Basophils 0.8 % (0.0-1.0); %Eosinophils 3.1 % (0.0-10.0); %Lymphocytes 16.7 % (21.0-51.0); %Monocytes 9.6 % (0.0-10.0); %Neutrophils 69.8 % (42.0-75.0); Hemoglobin 11.3 g/dL (14.0-18.0); Mean Corpuscular HGB CONC 33.7 g/dL (32.0-36.0); Mean Corpuscular Hemoglobin 29.7 pg (27.0-31.0); Mean Corpuscular Volume 88.3 fL (78.0-98.0); Mean Platelet Volume 7.2 fL (7.4-10.4); Platelet Count 376 thou/uL (130-400); RBC Distribution Width 11.4 % (11.5-14.5); Red Blood Cell (RBC) Count 3.82 mill/uL (4.70-6.10); White Blood Cell (WBC) Count 12.2 thou/uL (4.8-10.8)
--- NOTE | 2019-03-11 10:24 | PRG ---
DATE OF SERVICE: 03/11/2019 SERVICE: Pulmonary Medicine. INTERVAL HISTORY: The patient is doing outstanding from respiratory standpoint. He is breathing comfortably. No complaints of chest pain, shortness of breath, fevers, or chills. He is not having any groin discomfort anymore. He is making good urine. There has been no interval change to his condition. PHYSICAL EXAMINATION: VITAL SIGNS: Afebrile, pulse 82, blood pressure 158/95, respirations 14, and saturation 100% on room air. GENERAL: The patient is awake and alert, in no apparent distress. LUNGS: Excellent air entry. There is no prolonged expiratory phase or wheezing present. HEART: Normal rate and regular. ABDOMEN: Soft, nontender, and nondistended. Bowel sounds are positive. MUSCULOSKELETAL: No cyanosis or clubbing. No pitting in the bilateral lower extremities. NEUROLOGIC: Grossly nonfocal. LABORATORY DATA: Potassium is downtrending to 4.4. ASSESSMENT: 1. Severe dehydration, resolved. 2. Acute kidney injury, improving. 3. Hyperkalemia, resolved. 4. Crush injury to hand with recent surgery, requiring antibiotics. DISCUSSION AND PLAN: The patient's oozing is stopped in the groin. We will repeat a basic metabolic profile, magnesium, and CBC. If his laboratories are stable and continuing to improve, renal function is demonstrated, we will talk to Nephrology about removing the vascath. We need to touch base with surgery about whether or not a different antibiotic is indicated and discuss the duration. He does not have a specific allergy to clindamycin (though the urine eosinophils are currently pending), though he does not tolerate them because of severe nausea. At this point, he is stable for transition out of the ICU to the medical unit. When he arrives on the floor , we have no further requirements for inpatient Pulmonary or Critical Care opinion, and I will sign off. Job ID: [id number] MTDD
[2019-03-11 10:39] LABS: Anion Gap 17 mmol/L (10-20); BUN (Urea Nitrogen) 18 mg/dL (8.9-20.6); Calc. Creatinine Clearance 65 mL/min (70-130); Calcium 9.6 mg/dL (7.8-10.44); Carbon Dioxide 19 mmol/L (22-29); Chloride 104 mmol/L (98-107); Estimated GFR-MDRD 36; Glucose 100 mg/dL (70-105); Magnesium 1.8 mg/dL (1.6-2.6); Potassium 4.5 mmol/L (3.5-5.1); Sodium 135 mmol/L (136-145)
[2019-03-11] MEDS ORDERED: Amlodipine 10 MG TAB PO SCH (11:30)
--- NOTE | 2019-03-11 11:33 | PDOC.PN ---
- Subjective Encounter Start Date: 03/11/19 Encounter Start Time: 11:32 Subjective: Patient presented with abdominal discomfort and nausea/vomiting -: Was found to have elevated creat and potassium. No diarrhea. -: Had HD for Hyperkalemia. Recently had trauma to right hand. - Objective Resuscitation Status - Order Detail: 03/10/19 00:53 Resuscitation Status Routine Resuscitation Status: FULL: Full Resuscitation Vital Signs & Weight: Vital Signs (12 hours) Temp Pulse Resp Pulse Ox 03/11/19 08:00 99.3 F 100 03/11/19 04:00 99.4 F 03/11/19 02:30 69 16 99 Weight Admit Weight 240 lb 1.334 oz Weight 240 lb 1.334 oz Most Recent Monitor Data Heart Rate from ECG 77 NIBP 154/99 NIBP BP-Mean 117 Respiration from ECG 16 SpO2 100 I&O: 03/10/19 03/11/19 03/12/19 06:59 06:59 06:59 Intake Total 200 3656 609 Output Total 4002 1425 Balance 200 346 -816 Result Diagrams: 03/11/19 10:07 03/11/19 10:07 Phys Exam - Physical Examination Constitutional: NAD afebrile, no distress. HEENT: PERRLA, moist MMs Neck: no JVD, supple Respiratory: no wheezing, no rales, no rhonchi, clear to auscultation bilateral Cardiovascular: RRR, no significant murmur Gastrointestinal: soft, non-tender, no distention, positive bowel sounds Musculoskeletal: no edema, pulses present Right wrist and hand covered with dressing. Neurological: non-focal, moves all 4 limbs Psychiatric: normal affect, A&O x 3 Dx/Plan (1) Acute renal failure Status: Acute Comment: Patient had normal creat of 1.29 on 02/28/2019 when he had trauma to right hand. On discharge from that admission, creat was elevated at 3.17 at discharge on 03/02/2019. ATN from rhabdomyolysis and or medication induced nephrotoxicity is most likely. patient recieved vancomycin, gentamycin and ketorolax during recent hospitalization. renal US was unremarkable. (2) Hyperkalemia Code(s): E87.5 - HYPERKALEMIA Status: Acute Comment: Resolved with HD (3) Metabolic acidosis Code(s): E87.2 - ACIDOSIS Status: Acute (4) HTN (hypertension) Code(s): I10 - ESSENTIAL (PRIMARY) HYPERTENSION Status: Acute (5) Injury of right hand Code(s): S69.91XA - UNSP INJURY OF RIGHT WRIST, HAND AND FINGER(S), INIT ENCNTR Status: Acute (6) Nausea and vomiting Code(s): R11.2 - NAUSEA WITH VOMITING, UNSPECIFIED Status: Acute - Plan Continue IVF and monitor renal function -: Start amlodipine for HTN -: Analgesic as needed. -: Wound care as per ortho -: Start keflex. * .
[2019-03-11] MEDS ORDERED: Cephalexin 250 MG/5 ML Oral Suspension PO SCH (12:00)
[2019-03-11] MEDS: Acetaminophen 325 MG TAB PO PRN ×2 (12:10→23:22)
--- NOTE | 2019-03-11 13:52 | PRG ---
DATE OF SERVICE: 03/11/2019 SUBJECTIVE: This is a 28-year-old gentleman being seen for acute kidney injury. The patient denies any nausea, vomiting, or chest pain. OBJECTIVE: CONSTITUTIONAL: On exam, the patient is awake and alert. VITAL SIGNS: Afebrile, pulse 85, breathing 16, and blood pressure 152/98. GENERAL APPEARANCE AND MENTAL STATUS: Fair. HEAD/NECK: Normocephalic. Atraumatic. EYES: EOMI. No deformity. EARS: Clear. No ulcers. NOSE: Intact. No lesions. MOUTH: Clear. No discharge. THROAT: Clear. No exudate. LUNGS: Clear. No crackles. CARDIAC: S1, S2. No rub. ABDOMEN: Benign. Bowel sounds positive. GENITALIA/RECTUM: Lanier absent. BACK/EXTREMITIES: Edema 0+. NEUROLOGICAL: Alert and motor intact. LABORATORY DATA: Reviewed. ASSESSMENT AND PLAN: 1. Chronic kidney disease, stage 3, stable. 2. Acute tubular necrosis, improved. 3. Hypertension, stable. 4. Anemia, stable. 5. Hyperkalemia, stable. No indication for dialysis. Can remove catheter. Job ID: [id number]
[2019-03-11] MEDS: Cephalexin 250 MG/5 ML Oral Suspension PO SCH (21:16)
[2019-03-12 08:43] LABS: #Basophils 0.1 thou/uL (0.0-0.2); #Eosinphils 0.5 thou/uL (0.0-0.7); #Lymphocytes 2.7 thou/uL (1.20-3.40); #Monocytes 0.9 thou/uL (0.11-0.59); #Neutrophils 7.5 thou/uL (1.40-6.50); %Basophils 0.6 % (0.0-1.0); %Eosinophils 4.3 % (0.0-10.0); %Lymphocytes 22.9 % (21.0-51.0); %Monocytes 7.5 % (0.0-10.0); %Neutrophils 64.7 % (42.0-75.0); Hemoglobin 10.9 g/dL (14.0-18.0); Mean Corpuscular HGB CONC 33.5 g/dL (32.0-36.0); Mean Corpuscular Hemoglobin 29.8 pg (27.0-31.0); Mean Corpuscular Volume 88.9 fL (78.0-98.0); Mean Platelet Volume 7.4 fL (7.4-10.4); Platelet Count 437 thou/uL (130-400); RBC Distribution Width 11.3 % (11.5-14.5); Red Blood Cell (RBC) Count 3.67 mill/uL (4.70-6.10); White Blood Cell (WBC) Count 11.6 thou/uL (4.8-10.8)
[2019-03-12 08:56] LABS: Albumin 4.1 g/dL (3.5-5.0); Anion Gap 16 mmol/L (10-20); BUN (Urea Nitrogen) 20 mg/dL (8.9-20.6); BUN/Creatinine Ratio 8.26; Calc. Creatinine Clearance 71 mL/min (70-130); Carbon Dioxide 18 mmol/L (22-29); Chloride 105 mmol/L (98-107); Estimated GFR-MDRD 39; Glucose 114 mg/dL (70-105); Phosphorus 4.2 mg/dL (2.3-4.7); Potassium 4.5 mmol/L (3.5-5.1); Sodium 134 mmol/L (136-145)
[2019-03-12] MEDS ORDERED: Amlodipine 10 MG TAB PO SCH (09:00)
[2019-03-12 09:29] VITALS: TEMP 98.5
[2019-03-12] MEDS: Cephalexin 250 MG/5 ML Oral Suspension PO SCH (11:09)
[2019-03-12 12:48] VITALS: BP 131/76
[2019-03-12] MEDS ORDERED: Sodium Bicarbonate Tab 325 MG TAB PO SCH ×2 (14:15→21:00)
--- NOTE | 2019-03-12 14:35 | PRG ---
DATE OF SERVICE: 03/12/2019 SUBJECTIVE: Patient was seen and examined at bedside and overnight events noted. Patient denies any shortness of breath or chest pain or palpitation. No history of nausea or vomiting or diarrhea or fever or chills or cramps. OBJECTIVE: GENERAL: This is a well-built male, in no apparent distress. VITAL SIGNS: Temperature 98.5. Heart rate 79. Respiratory rate 18. Blood pressure 131/76. HEENT: Atraumatic, normocephalic. Oral mucosa is moist NECK: Supple. CARDIOVASCULAR: S1, S2 heard. Rate and rhythm regular. RESPIRATORY: Clear to auscultation. GASTROINTESTINAL: Abdomen is soft. MUSCULOSKELETAL: No tenderness. No edema. DERMATOLOGIC: No skin rash. NEUROLOGIC: Alert and awake and oriented X3. No focal neurologic deficits. Moving all the extremities. PSYCHIATRIC: Mood and affect normal. LABORATORY DATA: Potassium 4.5, BUN is 20, creatinine is 2.4. ASSESSMENT AND PLAN: 1. Acute kidney injury on chronic kidney disease stage 3. Improving renal function. Avoid nephrotoxins. 2. Hypertension. 3. Anemia. 4. Hyperkalemia better. 5. No need for dialysis. Okay to remove dialysis catheter. We will follow. Job ID: [id number]
--- NOTE | 2019-03-12 15:17 | DIS ---
DATE OF ADMISSION: 03/09/2019 DATE OF DISCHARGE: 03/12/2019 DISCHARGE DIAGNOSES: 1. Acute renal failure, requiring hemodialysis. 2. Hyperkalemia. 3. Metabolic acidosis. 4. Uncontrolled hypertension. 5. Nausea and vomiting. 6. Right hand injury. CONSULTS: 1. Nephrology. 2. Pulmonary and Critical Care. HOSPITAL COURSE: The patient is a 28-year-old male with prior history of hypertension, but not compliant on medication, who was recently discharged from the hospital following treatment for degloving right hand injury sustained when his hand was trapped in a printing press. The patient was admitted due to acute onset of nausea, vomiting, and generalized ill feeling, as well as posterior back pain. The patient had few episodes of nausea and vomiting prior to presentation to the hospital, was noted to have hyperkalemia with serum sodium of 7.2 on presentation to a free-standing ER, from where he was transferred to the hospital for further evaluation and treatment. The patient also was noted to have elevated creatinine of above 3. Of note, the patient had normal creatinine on February 28 when he presented for the right hand injury. There was also noted to have creatinine of 3.17 on March 02. Impression of acute renal failure from possible ATN or medication-induced nephrotoxicity was made and the patient was seen by Nephrology, who treated hyperkalemia with hemodialysis after initial medical treatment with dextrose and insulin as well as Kayexalate. The patient also was started on IV fluids. Following the initial hemodialysis treatment, creatinine was noted to be trending down, was without dialysis, showing signs of renal recovery, hence no further dialysis was provided. Of note, renal ultrasound showed normal kidneys with no abnormality or hydronephrosis. The patient also was noted to have elevated blood pressure and was started on amlodipine for blood pressure control. There was some concern that the nausea must have been due to clindamycin, hence clindamycin was discontinued and the patient was started on Keflex. The patient also reported hallucination and mental status changes with tramadol, which was given prior for pain, hence that was discontinued. The patient remained hemodynamically improved with creatinine trending downwards towards at discharge, creatinine was 2.4. Nausea and vomiting resolved with antiemetics and the patient was tolerating oral intake and denied any symptoms. PHYSICAL EXAMINATION: VITAL SIGNS: Temperature 98.5, pulse 89, respiratory rate 18, SpO2 of 97 on room air, and blood pressure is 131/76. GENERAL: Young male, in no distress. Afebrile. Anicteric. Acyanotic. HEENT: Normocephalic and atraumatic. Pupils are equal and reacting to light. Oral mucosa is moist. RESPIRATORY: Good air entry bilaterally with no crackle or rhonchi or use of accessory muscles. CARDIOVASCULAR: Regular rhythm and rate with normal heart sounds 1 and 2. No murmur was appreciated. GI: Full, soft, nontender, nondistended with normal bowel sounds. EXTREMITIES: Right hand and wrist covered with dressing. Other extremities are grossly normal and atraumatic with no edema. NEUROLOGIC: Conscious and alert, oriented x3 with appropriate mental status. Cranial nerves 2 through 12 are intact. The patient is ambulant. SKIN: Multiple tattoos noticed all over the skin. CONDITION AT DISCHARGE: Improved and stable. FOLLOWUP INSTRUCTION: 1. The patient is to follow up with the PCP of his choice in 7 days. He is also to follow up with the hand surgeon, Dr. Shin in 3 days. 2. He is also to follow up with director food and beverage in 1 week. DISCHARGE MEDICATIONS: 1. Acetaminophen 650 mg q.4 hours p.r.n. for pain. 2. Amlodipine 10 mg p.o. daily. 3. Keflex 500 mg p.o. b.i.d. for 10 days. 4. Sodium bicarbonate 650 mg p.o. b.i.d. TIME SPENT: This discharge took more than 38 minutes. Job ID: [id number]
== END 2019-03-12 15:11 | disposition home or self-care (01) | DRG 683 ==
LOC: ERS 18:25 → ERHOLD 21:17 → CCU 03-10 03:48 → ONC 03-11 13:02
PROVIDERS: ADMIT Hospitalist; ATTEND Hospitalist
PROC: 5A1D70Z Performance of Urinary Filtration, Intermittent, Less than 6 Hours Per Day (ICD-10-PCS; principal; 2019-03-09)
DX: N17.9 Acute kidney failure, unspecified (principal); E87.2 Acidosis; E87.1 Hypo-osmolality and hyponatremia; E87.5 Hyperkalemia; E86.0 Dehydration; E83.52 Hypercalcemia; I12.9 Hypertensive chronic kidney disease with stage 1 through stage 4 chronic kidney disease, or unspecified chronic kidney disease; N18.3 Chronic kidney disease, stage 3 (moderate); J45.909 Unspecified asthma, uncomplicated; Z98.890 Other specified postprocedural states; S69.91XA Unspecified injury of right wrist, hand and finger(s), initial encounter; W23.0XXA Caught, crushed, jammed, or pinched between moving objects, initial encounter
CPT/HCPCS: 36415; 36556; 71045; 76770; 80048; 80053; 80069; 81003; 81015; 82550; 83605; 83735; 85025; 85379; 87040; 87340; 89190; 93005; 93976; 94640; 96361; 96374; 96375; 96376; J1170; J1815; J2001; J2405; J2550; J3010; J3490; J7611; J7620

== ENCOUNTER 2019-04-06 09:41 | Observation (INO) | payer OTHER ==
[2019-04-05 10:40] VITALS: BMI 29.9
[2019-04-06] MEDS ORDERED: Ondansetron PF 4 MG/2 ML Vial ONE (10:58)
[2019-04-06] MEDS ORDERED: Lidocaine 1% PF 5 ML VIAL ONE (10:58)
[2019-04-06] MEDS ORDERED: Ketorolac Tromethamine 30 MG/ML VIAL ONE (10:58)
[2019-04-06] MEDS ORDERED: PROPOFOL 200 MG/20 ML VIAL ONE (10:58)
[2019-04-06] MEDS ORDERED: Dexamethasone 20 MG/5 ML VIAL ONE (10:58)
[2019-04-06 12:13] LABS: #Basophils 0.1 thou/uL (0.0-0.2); #Eosinphils 0.2 thou/uL (0.0-0.7); #Lymphocytes 2.7 thou/uL (1.20-3.40); #Monocytes 0.5 thou/uL (0.11-0.59); #Neutrophils 3.2 thou/uL (1.40-6.50); %Eosinophils 3.4 % (0.0-10.0); %Lymphocytes 40.3 % (21.0-51.0); %Monocytes 7.8 % (0.0-10.0); %Neutrophils 47.6 % (42.0-75.0); Hemoglobin 11.3 g/dL (14.0-18.0); Mean Corpuscular HGB CONC 35.4 g/dL (32.0-36.0); Mean Corpuscular Volume 87.5 fL (78.0-98.0); Platelet Count 217 thou/uL (130-400); RBC Distribution Width 11.9 % (11.5-14.5); Red Blood Cell (RBC) Count 3.66 mill/uL (4.70-6.10); White Blood Cell (WBC) Count 6.7 thou/uL (4.8-10.8)
[2019-04-06] MEDS ORDERED: Midazolam HCl 2 mg/2 ml Vial ONE (14:20)
[2019-04-06] MEDS ORDERED: Fentanyl 100 MCG/2 ML VIAL ONE ×2 (15:45→16:39)
[2019-04-06] MEDS ORDERED: Sodium Chloride 0.9% 10 ML ONE (15:58)
[2019-04-06] MEDS ORDERED: Bacitracin Zinc Ointment 30 gm TUBE ONE ×2 (15:58→17:28)
[2019-04-06] MEDS ORDERED: Bupivacaine PF 0.5% 30 ML VIAL ONE (15:58)
[2019-04-06] MEDS ORDERED: Thrombin 5000 UNITS/5 ML VIAL ONE ×2 (17:00→17:21)
[2019-04-06] MEDS ORDERED: Meperidine HCl/PF 25 MG/ML VIAL ONE (18:12)
[2019-04-06] MEDS ORDERED: Bisacodyl 10 MG SUPP PR PRN (18:29)
[2019-04-06] MEDS ORDERED: Ondansetron PF 4 MG/2 ML Vial IV PRN (18:29)
[2019-04-06] MEDS ORDERED: Milk Of Magnesia 30 ML UDCUP PO PRN (18:29)
[2019-04-06] MEDS ORDERED: traMADol HCl 50 MG TAB PO PRN (18:29)
[2019-04-06] MEDS ORDERED: Promethazine HCl 25 MG/ML VIAL IM PRN (18:29)
[2019-04-06] MEDS ORDERED: Morphine 4 MG/ML VIAL SLOW IVP PRN (18:29)
[2019-04-06] MEDS ORDERED: TETANUS AND DIPHTHERIA TOX/PF 0.5 ML DISP.SYRIN IM SCH (18:30)
[2019-04-06] MEDS ORDERED: Communication Order-Pharmacy FS SCH (18:30)
[2019-04-06] MEDS ORDERED: Meperidine HCl/PF 25 MG/ML VIAL IM PRN (18:33)
[2019-04-06] MEDS ORDERED: Morphine 4 MG/ML VIAL ONE (18:34)
[2019-04-06 19:01] LABS: Hemoglobin 11.4 g/dL (14.0-18.0); Mean Corpuscular HGB CONC 32.9 g/dL (32.0-36.0); Mean Corpuscular Hemoglobin 28.8 pg (27.0-31.0); Mean Corpuscular Volume 87.5 fL (78.0-98.0); RBC Distribution Width 11.8 % (11.5-14.5); Red Blood Cell (RBC) Count 3.96 mill/uL (4.70-6.10); White Blood Cell (WBC) Count 7.1 thou/uL (4.8-10.8)
[2019-04-06 19:18] LABS: Band 2 % (5-11); Eosinophils 1 % (0-10); Lymphocytes 27 % (21-51); MDiff Complete? YES; Mean Platelet Volume 8.6 fL (7.4-10.4); Monocytes 3 % (0-10); Neutrophil 67 % (42-75); Platelet Morphology Comment PLT clumps seen-ADEQ
[2019-04-06 19:26] LABS: Anion Gap 19 mmol/L (10-20); BUN (Urea Nitrogen) 12 mg/dL (8.9-20.6); Calc. Creatinine Clearance 138 mL/min (70-130); Calcium 9.9 mg/dL (7.8-10.44); Carbon Dioxide 15 mmol/L (22-29); Chloride 107 mmol/L (98-107); Estimated GFR-MDRD 85; Glucose 89 mg/dL (70-105); Potassium 5.2 mmol/L (3.5-5.1); Sodium 136 mmol/L (136-145)
[2019-04-06 20:31] VITALS: BP 127/79; TEMP 97.4
[2019-04-06] MEDS ORDERED: CEFAZOLIN 2 GM in Premix Bag 1 BAG IVPB SCH (22:00)
--- NOTE | 2019-04-07 04:08 | OP ---
DATE OF PROCEDURE: 04/06/2019 PREOPERATIVE DIAGNOSIS: Right palmar necrotic wound, 10 x 6 cm with webspace wound, primarily on the ring finger ulnar side aspect 2 x 1 cm. POSTOPERATIVE DIAGNOSIS: Right palmar necrotic wound, 10 x 6 cm with webspace wound, primarily on the ring finger ulnar side aspect 2 x 1 cm. PROCEDURES PERFORMED: 1. The right palmar wound debridement. 2. Split-thickness skin graft, 10 x 6 cm. 3. At the right webspace wound, debridement of the wound using and then split-thickness skin graft. ESTIMATED BLOOD LOSS: 25 mL. TOURNIQUET TIME: 25 minutes. FINDINGS: Marked amount of granulation tissue, but no skin island or early formation at the hypothenar region and the web spaces fourth after the debridement and unroofing of the eschar. DESCRIPTION OF PROCEDURE: After successful general LMA technique, the limb was prepped and draped. We then began to remove all the sutures and patricia that have been placed by the same surgeon during the procedure. We then began to debride 1 mm of the necrotic hypothenar skin, which was seem to be mucopurulent but did not prove to be. Once this was done, we noticed that there was some granulation tissue which we debrided using the following instrumentation and followin. Excision technique. 2. Instrumentation was Gillespie blade, tenotomy scissors, curette, and irrigation. Hemostasis was obtained. We then measured the defect healing at the fourth web space, where there was some full-thickness skin loss. The final first web space was approximately 2 x 1 cm and the palmar wound was 10 x 6 cm. We then when harvested the graft from this lateral right leg using appropriate technique 0.20 thickness of the graft, meshed graft 1 to 1.5, and then used patricia in areas we had already removed staple gauze. Complete the securing of the graft under appropriate tension and length throughout the areas of needed skin. The patient then had the donor site covered with thrombin Gelfoam and double thick Tegaderms, large, and the skin graft site was covered with a bulky dressing, and finally a dorsal block splint. The patient left the operating room without evidence of anesthetic or operative complication. Job ID: [id number]
== END 2019-04-06 21:35 | disposition home or self-care (01) ==
LOC: SDC 09:41 → SURG B 18:42
PROVIDERS: ADMIT Orthopaedic Surgery Hand Surgery; ATTEND Orthopaedic Surgery Hand Surgery
PROC: 0HRFX74 Replacement of Right Hand Skin with Autologous Tissue Substitute, Partial Thickness, External Approach (ICD-10-PCS; principal; 2019-04-06)
DX: S61.401A Unspecified open wound of right hand, initial encounter (principal); I10 Essential (primary) hypertension; Z79.2 Long term (current) use of antibiotics; Z79.899 Other long term (current) drug therapy; X58.XXXA Exposure to other specified factors, initial encounter
CPT/HCPCS: 36415; 80048; 85025; G0378; J0690; J1100; J1885; J2001; J2175; J2250; J2270; J2405; J2704; J3010; J3490; S0020

== ENCOUNTER 2019-12-07 07:50 | Day surgery (SDC) | payer OTHER ==
[2019-12-06 12:03] VITALS: BMI 29.9
[2019-12-07] MEDS ORDERED: Albuterol Sulfate 1.25 MG/3 ML NEB ONE (09:07)
[2019-12-07] MEDS ORDERED: Albuterol Sulfate 2.5 mg/3 ml Neb NEB SCH (09:15)
== END 2019-12-07 09:41 | disposition home or self-care (01) ==
LOC: SDC 07:50
PROVIDERS: ATTEND Orthopaedic Surgery Hand Surgery
DX: L92.3 Foreign body granuloma of the skin and subcutaneous tissue (principal); Z79.899 Other long term (current) drug therapy; Z98.890 Other specified postprocedural states; Z53.9 Procedure and treatment not carried out, unspecified reason
CPT/HCPCS: 94640; J0690

== ENCOUNTER 2019-12-14 05:34 | Day surgery (SDC) | payer OTHER ==
[2019-12-13 09:40] VITALS: BMI 29.2
[2019-12-14] MEDS ORDERED: Sodium Chloride 0.9% 10 ML ONE (06:18)
[2019-12-14] MEDS ORDERED: Bacitracin Zinc Ointment 30 gm TUBE ONE (06:18)
[2019-12-14] MEDS ORDERED: Bupivacaine PF 0.5% 30 ML VIAL ONE (06:18)
[2019-12-14] MEDS ORDERED: Thrombin 5000 UNITS/5 ML VIAL ONE (06:18)
[2019-12-14] MEDS ORDERED: Midazolam HCl 2 mg/2 ml Vial ONE (06:55)
[2019-12-14] MEDS ORDERED: HYDROmorphone 0.5 MG/0.5 ML SYRINGE ONE (06:59)
[2019-12-14] MEDS ORDERED: Albuterol Sulfate 2.5 mg/3 ml Neb ONE (07:03)
[2019-12-14] MEDS ORDERED: Albuterol Sulfate 2.5 mg/3 ml Neb NEB SCH (07:15)
--- NOTE | 2019-12-14 08:07 | RAD ---
Exam: Right wrist 2 views: 2 portable fluoroscopic spot images of the wrist are performed. HISTORY: Removal of foreign body right wrist FINDINGS: No evidence for a metal or significantly opaque foreign body in the visualized soft tissues of the wr ist.
[2019-12-14] MEDS ORDERED: Ketorolac Tromethamine 30 MG/ML VIAL ONE ×2 (08:12→09:49)
[2019-12-14] MEDS ORDERED: Dexamethasone 20 MG/5 ML VIAL ONE (09:49)
[2019-12-14] MEDS ORDERED: Lidocaine 1% PF 5 ML VIAL ONE (09:49)
[2019-12-14] MEDS ORDERED: PROPOFOL 200 MG/20 ML VIAL ONE (09:49)
[2019-12-14] MEDS ORDERED: Ondansetron PF 4 MG/2 ML Vial ONE (09:49)
--- NOTE | 2019-12-14 13:25 | OP ---
DATE OF PROCEDURE: 12/14/2019 PREOPERATIVE DIAGNOSIS: Foreign body with foreign body granuloma, palmar radial wrist (staple). POSTOPERATIVE DIAGNOSIS: Foreign body with foreign body granuloma, palmar radial wrist (staple). PROCEDURE PERFORMED: 1. Removal of foreign body granuloma. 2. Removal of foreign body (staple). 3. C-arm supervision. INDICATION: The patient had patricia that appeared to invert on radiographs and settle approximately 6 mm deep with an associated painful granuloma over the base of the thumb/radial palmar wrist. Pain could not be controlled with conservative means. TOURNIQUET TIME: 5 minutes. ESTIMATED BLOOD LOSS: Less than 2 mL. COMPLICATIONS: None. DESCRIPTION OF PROCEDURE: After successful general endotracheal anesthesia, the limb was prepped and draped. We brought the C-arm to the field, identified the wire and also could see the mass. We then made an incision, carried down through skin and subcutaneous tissue and below the dermis. There was a granuloma. We excised the granuloma, and the base of the granuloma was the inverted hook portion more superficial, staple. We dissected the staple free as well. We irrigated the area. We had used a total of 10 mL of 0.5% Marcaine, released the tourniquet, obtained hemostasis. We closed with buried Monocryl with buried chromic suture. The patient had a bulky dressing applied with bacitracin, Adaptic, Kerlix, 4x4 and a small 2-inch Angel wrap. He left the operating room without evidence of anesthetic or operative complication. Job ID: [id number]
== END 2019-12-14 09:54 | disposition home or self-care (01) ==
LOC: SDC 05:34
PROVIDERS: ATTEND Orthopaedic Surgery Hand Surgery
PROC: 0RCN0ZZ Extirpation of Matter from Right Wrist Joint, Open Approach (ICD-10-PCS; principal; 2019-12-14)
DX: L92.3 Foreign body granuloma of the skin and subcutaneous tissue (principal); G58.8 Other specified mononeuropathies; I10 Essential (primary) hypertension; Z18.10 Retained metal fragments, unspecified; Z79.899 Other long term (current) drug therapy; Z98.890 Other specified postprocedural states
CPT/HCPCS: 76000; 94640; J0690; J1100; J1170; J1885; J2001; J2250; J2405; J2704; J3490; J7611; S0020